=== PATIENT | female | born 1965 | race African-American/Black ===

== ENCOUNTER 2022-08-20 09:05 | Outpatient (CLI) | payer OTHER ==
[2022-08-20] MEDS ORDERED: Iopamidol 300 61% 100 ML VIAL FS ONE (09:28)
== END 2022-08-20 09:06 | disposition home or self-care (01) ==
LOC: CSHCT 09:05
PROVIDERS: ATTEND Physician Assistant
DX: C06.9 Malignant neoplasm of mouth, unspecified (principal)
CPT/HCPCS: 70491; Q9967

== ENCOUNTER 2023-01-09 14:51 | Outpatient (CLI) | payer OTHER | END 2023-01-09 14:52 | disposition home or self-care (01) | LOC: CSHULT 14:51 | PROVIDERS: ATTEND Internal Medicine | DX: E66.01 Morbid (severe) obesity due to excess calories (principal) | CPT/HCPCS: 93306 ==